=== PATIENT | female | born 1975 | race Caucasian/White ===

== ENCOUNTER 2023-07-13 12:32 | Emergency (ER) | payer OTHER ==
[~2023-07-13] VITALS: Ht 162.6 cm; Wt 90.7 kg
[2023-07-13 14:52] LABS: ETHANOL 261.3 mg/dL (0.0-10.0)
[2023-07-13 17:00] VITALS: O2SAT 99
== END 2023-07-13 17:00 | disposition home or self-care (01) ==
LOC: EDBD 12:32 → ER 13:08
DX: S62.512A Displaced fracture of proximal phalanx of left thumb, initial encounter for closed fracture (principal); S00.83XA Contusion of other part of head, initial encounter; M54.2 Cervicalgia; M25.511 Pain in right shoulder; M25.522 Pain in left elbow; M25.521 Pain in right elbow; M54.50 Low back pain, unspecified; M25.561 Pain in right knee; M25.571 Pain in right ankle and joints of right foot; Y04.8XXA Assault by other bodily force, initial encounter; Y92.89 Other specified places as the place of occurrence of the external cause
CPT/HCPCS: 36415; 70450; 71250; 72125; 72131; 74176; 80320; 84702; 99284